=== PATIENT | female | born 1980 | race Caucasian/White ===

== ENCOUNTER 2017-06-18 09:11 | Emergency (ER) | payer BC ==
[~2017-06-18] VITALS: Ht 154.9 cm; Wt 56.0 kg
[~2017-06-18 09:11] MED LIST: EPIN0.3P4 IM; PRED10TA PO
[2017-06-18 09:13] VITALS: Ht 154.9 cm; Wt 56.0 kg
--- NOTE | 2017-06-18 10:26 | RADRPT ---
PROCEDURE: XR Chest. CLINICAL INDICATION: chest pain, cough TECHNIQUE: Single frontal view of the chest was obtained COMPARISON: CR CHEST 08/08/2014 FINDINGS: The heart and mediastinum are within normal limits. The lungs are clear. There is no pleural effusion or pneumothorax. RPTAT: AA IMPRESSION: No acute disease. .Steven Cosme MD, MD Date Time Electronically viewed and signed by .Steven Cosme MD, MD on 06/18/2017 10:25 .S/
--- NOTE | 2017-06-18 11:19 | ERD ---
ER Documentation Chief Complaint Chief Complaint congestion HPI 37-year-old female with a history of spinocerebellar ataxia type I comes to emergency room with congestion, sore throat, cough for about 3 days. The patient is here with her , states that he also has had similar symptoms. Today she was at home and she had been complaining of difficulty handling the mucus in her throat and because of this reason a family member had called 911. She does not complain of any shortness of breath, weakness, drooling, but reports that because of the mucus she has difficulty swallowing the secretions. She has not had any fevers, chills, chest pain or shortness of breath. ROS All systems reviewed and are negative except as per history of present illness. Medications Home Meds Active Scripts Prednisone* (Prednisone*) 10 Mg Tab, 10 MG PO DAILY, #30 TAB Prov:KIKO GUARDADO 08/09/14 Epinephrine (Epipen 2-Brad) 0.3 Mg/0.3 Ml Pen.injctr, 0.3 MG IM DIRECTED Y for ALLERGIC REACTION, #1 EA 1 Refill Prov:KIKO GUARDADO 08/09/14 Allergies Allergies: Coded Allergies: No Known Drug Allergies (Verified Allergy, Unknown, 06/18/17) Uncoded Allergies: LOBSTER (Allergy, Severe, 08/08/14) OYSTER (Allergy, Severe, 08/08/14) PMhx/Soc History of Surgery: No Anesthesia Reaction: No Hx Neurological Disorder: Yes (SPINOCEREBELLAR ATAXAI TYPE 1) Hx Respiratory Disorders: No Hx Cardiac Disorders: No Hx Psychiatric Problems: No Hx Miscellaneous Medical Probl: Yes (ALLERGIES UNKNOWN,BREAST AUGMENTATION ) Hx Alcohol Use: Yes (OCCASIONAL DRINKER ) Hx Substance Use: No Hx Tobacco Use: Yes (OCCASIONAL SMOKER ) Smoking Status: Current some day smoker Physical Exam Vitals Vital Signs Date Time Temp Pulse Resp B/P Pulse Ox O2 Delivery O2 Flow Rate FiO2 06/18/17 09:13 98.5 76 18 136/78 99 Physical Exam General: Well-developed, well-nourished. The patient appears in no acute distress. HEENT: Head is normocephalic, atraumatic. No scleral icterus. Pupils are equal , round, and reactive. Oral mucous membranes are moist. No pharyngeal erythema. Neck: Supple. Nontender. Lungs: Clear to auscultation. Normal air movement. Heart: Regular rate and rhythm. S1 and S2 are normal. No murmurs, gallops, or rubs. Abdomen: Soft, nontender, nondistended. Bowel sounds are normoactive. Extremities: No clubbing or cyanosis. Normal pulses. Moving extremities x 4. No weakness. Neurologic: Alert and oriented 3. No focal deficits. Skin: Normal turgor. No rash or lesions. Procedures/MDM ED COURSE: Influenza a and B are negative. Chest X-ray 1V Interpreted by me as well as radiologist: Soft Tissue: No acute abnormalities Bones: No acute abnormalities Mediastinum/Cardiac Silhouette/Lungs: No acute abnormalities MEDICAL DECISION MAKING: The patient is a 87-year-old female who comes in with an acute upper respiratory infection, presumed viral. The patient at this time clinically does not have any difficulty handling her secretions including her saliva. She does not have any obvious dysphasia. Her speech is normal. Her vitals are normal, she is saturating on normal on room air at 99%. Her main complaint at this time is the mucus in her throat that is not improving with Sudafed. I given her history, I discussed the patient's care with my attending physician Dr. Deluca. Influenza a and B as well as a chest x-ray advised. Patient's influenza a and B are negative, and her chest x-ray is normal. I suspected a viral URI, and his family members at home have similar symptoms. To help with her secretions it was advised to give her Mucinex, the patient will also be given Zyrtec and she was advised to use a warm humidifier. There is no airway threatening process, I do not suspect a deep space infection including a retropharyngeal abscess. The patient has a differential diagnosis of a viral upper respiratory infection, bacterial upper respiratory infection, bronchitis, pneumonia, pharyngitis, laryngitis, epiglottitis, croup, pneumonia. Patient has a normal pulmonary examination, clear breath sounds, normal pulse oximetry, with no corrective measures needed at this time. Fluids, rest, antipyretics were encouraged. Departure Diagnosis: Primary Impression: Upper respiratory infection Condition: Good Patient Instructions: Uri, Viral, No Abx (Adult) Additional Instructions: Use Mucinex, Zyrtec, Flonase [id number]. Call your primary care doctor TOMORROW for an appointment during the next 1-2 days.See the doctor sooner or return here if your condition worsens before your appointment time. FRANCISCO J HEREDIA PA-C Jun 18, 2017 11:19
== END 2017-06-18 11:12 | disposition home or self-care (01) ==
LOC: FTE 09:11
DX: J06.9 Acute upper respiratory infection, unspecified (principal); F17.210 Nicotine dependence, cigarettes, uncomplicated
CPT/HCPCS: 71010; 87400